=== PATIENT | male | born 1965 | race Caucasian/White ===

== ENCOUNTER → 2018-07-11 | Outpatient (CLI) | payer OTHER ==
[~2018-07-11] MED LIST: LEVAQUIN 5500 MG/TA1 PO; MULTI VITAMINS1 TAB PO; MVI; NO HOME MEDICATIONS; NORCO 325 MG-7.1 TAB; OXYCODONE5 M1 PO; PERCOCET 325 MG1 TA2 PO; PERCOCET 5/321 UDTAB PO; TYLENOL/CODEINE1 ML PO
== END ==
LOC: COL.RAD 15:32
DX: R36.1 Hematospermia (principal)

== ENCOUNTER 2021-05-18 13:44 | Inpatient (IN) | payer OTHER ==
[~2021-05-18] VITALS: Ht 172.7 cm; Wt 122.3 kg
[2021-05-18 15:20] LABS: BASO # 0.1 (0.0-0.2); BASO % 0.5 % (0.0-2.0); EOS # 0.2 (0.0-0.7); EOS % 1.3 % (0-4.0); LYMPH # 1.2 (1.2-3.4); LYMPH % 9.6 % (20.0-51.0); MEAN CELL VOLUME 100 fl (80.0-100.0); MEAN CORPUSCULAR HGB CONC 34 g/dl (33.0-37.0); MEAN PLATELET VOLUME 10.6 fl (7.4-10.4); MONO # 1.4 (0.1-0.6); MONO % 11.1 % (1.7-9.3); PLATELET COUNT 254 K/mm3 (130-400); RED BLOOD COUNT 5.94 M/mm3 (4.20-5.60); REDCELL DISTRIBUTION WIDTH-CV 14.1 % (11.5-14.5)
[2021-05-18 15:21] LABS: HEMATOCRIT 59.2 % (42.0-52.0); MEAN CORPUSCULAR HEMOGLOBIN 34 pg (27.0-31.0)
[2021-05-18 15:37] LABS: ALBUMIN 3.9 gm/dL (3.5-5.0); BILIRUBIN,TOTAL 2.1 mg/dL (0.0-1.0); C-REACTIVE PROTEIN 1.8 mg/dL (0.0-0.9); CREATININE, serum 1.18 (0.66-1.25); TOTAL PROTEIN 7.6 gm/dL (6.4-8.2)
[2021-05-18 15:40] LABS: POTASSIUM 4.8 mmol/L (3.4-5.0)
[2021-05-18 15:46] LABS: TROPONIN-I 0.035 ng/mL (0.000-0.035)
[2021-05-18 16:19] LABS: COLLECTION METHOD CLEAN CATCH
[2021-05-18 16:25] LABS: MUCOUS Present /lpf; PH 5 (5-8); SQUAMOUS EPITHELIAL None Seen /hpf; URINE APPEARANCE Cloudy; URINE BACTERIA Rare /hpf; URINE BILIRUBIN Negative (NEGATIVE); URINE BLOOD Negative (NEGATIVE); URINE COLOR Yellow; URINE GLUCOSE Negative (NEGATIVE); URINE KETONE Trace (NEGATIVE); URINE LEUKOCYTE ESTERASE Negative (NEGATIVE); URINE NITRATE Negative (NEGATIVE); URINE PROTEIN(semi-quant) 1+ (NEGATIVE); URINE RBC 0-2 /hpf; URINE UROBILINOGEN Negative (NEGATIVE)
[2021-05-18] MEDS ORDERED: ASPIRIN 81M81 MG/TA2 PO (17:58)
[2021-05-18] MEDS ORDERED: CITRACAL + D CA1 TAB (17:59)
[2021-05-18] MEDS ORDERED: VITAMINC1000TA (17:59)
[2021-05-18] MEDS ORDERED: KRILL OIL 5001 EACH PO (18:00)
[2021-05-18] MEDS ORDERED: TOPAMAX50 MG PO (18:00)
[2021-05-18] MEDS ORDERED: ADIPEX-P37.5 M2 PO (18:01)
[2021-05-18] MEDS ORDERED: ARMOUR THYROID120 MG PO (18:01)
[2021-05-18] MEDS ORDERED: PRINIVIL20 MG PO (18:01)
[2021-05-18 18:13] LABS: BASO # 0.1 (0.0-0.2); BASO % 0.4 % (0.0-2.0); EOS # 0.3 (0.0-0.7); EOS % 2.1 % (0-4.0); GRAN # 9.1 (1.4-6.5); GRAN % 75.4 % (42.2-75.2); LYMPH # 1.2 (1.2-3.4); LYMPH % 9.7 % (20.0-51.0); MEAN CELL VOLUME 99 fl (80.0-100.0); MEAN CORPUSCULAR HGB CONC 34 g/dl (33.0-37.0); MEAN PLATELET VOLUME 9.7 fl (7.4-10.4); MONO # 1.4 (0.1-0.6); MONO % 11.7 % (1.7-9.3); PLATELET COUNT 235 K/mm3 (130-400)
[2021-05-18 18:19] LABS: HEMATOCRIT 57.4 % (42.0-52.0); HEMOGLOBIN 19.3 g/dl (13.5-18.0); MEAN CORPUSCULAR HEMOGLOBIN 33 pg (27.0-31.0)
[2021-05-18 23:34] VITALS: BP 157/83; PULSE 83; TEMP 97.9
[2021-05-19 03:12] VITALS: BP 163/89; PULSE 91; TEMP 97.7
[2021-05-19 07:11] LABS: ALBUMIN 3.7 gm/dL (3.5-5.0); BILIRUBIN,TOTAL 1.5 mg/dL (0.0-1.0); CALCIUM 9.5 mg/dL (8.4-10.2); CREATININE, serum 1.04 (0.66-1.25); POTASSIUM 4.4 mmol/L (3.4-5.0); TOTAL PROTEIN 6.9 gm/dL (6.4-8.2)
[2021-05-19 07:14] LABS: BASO # 0.1 (0.0-0.2); BASO % 0.6 % (0.0-2.0); EOS # 0.3 (0.0-0.7); EOS % 2.1 % (0-4.0); GRAN # 9.6 (1.4-6.5); GRAN % 78.2 % (42.2-75.2); LYMPH # 0.9 (1.2-3.4); LYMPH % 7.4 % (20.0-51.0); MEAN CELL VOLUME 102 fl (80.0-100.0); MEAN CORPUSCULAR HGB CONC 33 g/dl (33.0-37.0); MEAN PLATELET VOLUME 10.5 fl (7.4-10.4); MONO # 1.3 (0.1-0.6); MONO % 10.9 % (1.7-9.3); PLATELET COUNT 246 K/mm3 (130-400); RED BLOOD COUNT 5.57 M/mm3 (4.20-5.60); REDCELL DISTRIBUTION WIDTH-CV 14.2 % (11.5-14.5)
[2021-05-19 07:15] LABS: HEMATOCRIT 56.6 % (42.0-52.0); HEMOGLOBIN 18.6 g/dl (13.5-18.0); MEAN CORPUSCULAR HEMOGLOBIN 33 pg (27.0-31.0)
[2021-05-19 07:23] LABS: TROPONIN-I 0.031 ng/mL (0.000-0.035)
[2021-05-19 07:42] LABS: TSH w REFLEX 1.23 uIU/mL (0.465-4.680)
[2021-05-19 08:06] VITALS: BP 160/77; PULSE 90; TEMP 97.9
--- NOTE | 2021-05-19 09:07 | NUR ---
SW met with the patient to discuss discharge plan. The patient lives in [place] with his , Beatriz (ph#[phone]). He reports independence with ADLs and does not have any DME. The patient's PCP is Dr. Chiara Vidal in [place] and he receives his medications from [facility]. He reports no difficulties obtaining his meds. The patient does not have a DPOA-HC and he was not interested in completing one while here. The patient plans to return home with his upon discharge. No additional needs at this time. *Discharge plan: home with *
--- NOTE | 2021-05-19 09:53 | NUR ---
Initial visit attempt; Patient resting, [facility] [employer] Attendant left card offering God's blessings and informing patient of the availability of spiritual care at [facility].
--- NOTE | 2021-05-19 11:10 | NUR ---
Assessment completed, alert/oriented, vital signs stable, reports moderate-severe RUQ pain , morphine is helping, abdomen is round and firm, BS+, he is NPO, IVF infusing, heart RRR/distal pulses are palpable, lungs CTA/ no resp.difficulty noted, patient denies other needs at this time, will continue to monitor
[2021-05-19] MEDS ORDERED: VICTOZA6 MG/ML SQ (11:54)
[2021-05-19] MEDS ORDERED: testosterone cream TP (11:56)
[2021-05-19 13:32] VITALS: BP 167/94; PULSE 90; TEMP 98.5
[2021-05-19 15:49] VITALS: BP 155/90; PULSE 94; TEMP 98.6
--- NOTE | 2021-05-19 20:00 | NUR ---
Patient in bed resting. Alert and oriented x 3. Assessment complete. States pain to abdomen 6/10, medications given per orders. Abdomen round and firm. Mouth swabs provided to patient, patient NPO; fluids infusing per orders. Denies further needs at this time.
[2021-05-19 20:02] VITALS: BP 174/92; PULSE 95; TEMP 97.5
[2021-05-19 23:09] VITALS: BP 173/97; PULSE 95; TEMP 98.8
[2021-05-20 03:12] VITALS: BP 159/91; PULSE 98; TEMP 98.9
--- NOTE | 2021-05-20 05:43 | NUR ---
Patient doing well throughout the night, sleeps between disturbances. Pain medication given for abdominal pain through the night. Fluids continue infusig per orders. Patient up independently in room with steady gait. Denies further needs at this time. Will report off to day shift.
[2021-05-20 07:05] LABS: HEMOGLOBIN 17.2 g/dl (13.5-18.0); MEAN CELL VOLUME 106 fl (80.0-100.0); MEAN CORPUSCULAR HEMOGLOBIN 34 pg (27.0-31.0); MEAN CORPUSCULAR HGB CONC 32 g/dl (33.0-37.0); MEAN PLATELET VOLUME 10.9 fl (7.4-10.4); PLATELET COUNT 203 K/mm3 (130-400); RED BLOOD COUNT 5.09 M/mm3 (4.20-5.60); REDCELL DISTRIBUTION WIDTH-CV 14.5 % (11.5-14.5)
[2021-05-20 07:17] LABS: HEMATOCRIT 53.7 % (42.0-52.0)
[2021-05-20 07:20] LABS: CALCIUM 8.8 mg/dL (8.4-10.2); CREATININE, serum 0.95 (0.66-1.25); POTASSIUM 3.9 mmol/L (3.4-5.0)
[2021-05-20 07:41] VITALS: BP 160/94; PULSE 89; TEMP 99
--- NOTE | 2021-05-20 08:41 | NUR ---
PT PLEASANT, REPORTS PAIN 6/10 IN RL ABD. PT AOX4, IND IN ROOM, FLUIDS INFUSING AT 150ML/HR, PT LUNGS CLEAR TO AUSCULTATION, MEDICATIONS GIVEN ALONG WITH PAIN MEDICATION, NO OTHER NEEDS AT THIS TIME.
--- NOTE | 2021-05-20 09:53 | NUR ---
DR. RODRIGUEZ DID NOT WANT MIRALAX GIVEN WHILE PT NPO, WANTING TO TRY STOOL SOFTENER FIRST
--- NOTE | 2021-05-20 12:19 | NUR ---
Chaplain house and offered support with patient.
[2021-05-20 12:40] VITALS: BP 161/85; PULSE 90; TEMP 98.4
[2021-05-20 16:05] VITALS: BP 161/107; PULSE 89; TEMP 98.7
--- NOTE | 2021-05-20 17:23 | NUR ---
ivf infusing, pt ambulating in halls independently, has not recieved pain meds since am, pleasant, tolerating cld very well. no n/v, no other needs
[2021-05-20 19:48] VITALS: BP 147/89; PULSE 66; TEMP 99.1
--- NOTE | 2021-05-20 20:30 | NUR ---
Patient sitting up in bed. Alert and oriented x 3. Assessment complete. Denies pain at this time. Up ambulating in halls independently with steady gait. States he is tolerating a clear liquid diet.
--- NOTE | 2021-05-20 22:11 | NUR ---
In bed watching TV. Denies needs at this time.
[2021-05-20 23:39] VITALS: BP 149/71; PULSE 83; TEMP 98.1
--- NOTE | 2021-05-21 00:27 | NUR ---
Patient in bed resting. Denies pain at this time.
[2021-05-21 04:11] VITALS: BP 191/87; PULSE 86; TEMP 99.2
--- NOTE | 2021-05-21 05:53 | NUR ---
Patient doing well through the night, states he has had difficulty sleeping tonight. Denies pain at this time. Denies further needs at this time. Will report off to day shift.
[2021-05-21 06:57] LABS: BASO # 0.1 (0.0-0.2); BASO % 0.5 % (0.0-2.0); EOS # 0.5 (0.0-0.7); EOS % 4.6 % (0-4.0); GRAN # 8.2 (1.4-6.5); GRAN % 72.4 % (42.2-75.2); LYMPH % 9.2 % (20.0-51.0); MEAN CELL VOLUME 104 fl (80.0-100.0); MEAN CORPUSCULAR HEMOGLOBIN 34 pg (27.0-31.0); MEAN CORPUSCULAR HGB CONC 32 g/dl (33.0-37.0); MEAN PLATELET VOLUME 10.5 fl (7.4-10.4); MONO # 1.4 (0.1-0.6); MONO % 12.3 % (1.7-9.3); PLATELET COUNT 195 K/mm3 (130-400); RED BLOOD COUNT 5.03 M/mm3 (4.20-5.60)
[2021-05-21 07:07] LABS: HEMATOCRIT 52.4 % (42.0-52.0)
[2021-05-21 07:15] LABS: CALCIUM 8.6 mg/dL (8.4-10.2); CREATININE, serum 0.77 (0.66-1.25); POTASSIUM 3.8 mmol/L (3.4-5.0)
[2021-05-21 08:28] VITALS: BP 175/92; PULSE 92; TEMP 98.9
--- NOTE | 2021-05-21 09:54 | NUR ---
PT PLEASANT, AOX4, DENIES PAIN AT THIS TIME, REPORTS POOR SLEEP DURING THE NIGHT, PHSYICIAN CALLED FOR ADVANCING DIET PER PT REQUEST, SHOWED PT HOW TO ORDER MEALS, ASSESMENT PERFORMED, MEDICATIONS GIVEN, PT DISCONNECTED FROM IV TO TAKE SHOWER, NO OTHER NEEDS.
[2021-05-21 10:11] VITALS: BP 154/95
--- NOTE | 2021-05-21 11:01 | NUR ---
DISCHARGE EDUCATION PROVIDED AND NO QUESTIONS WERE ASKED, PT VERBALIZED UNDERSTANDING, IV REMOVED, NO OTHER NEEDS, PT DENIED WHEELCHAIR TO WALK OUT OF BUILDING
== END 2021-05-21 11:02 | disposition home or self-care (01) | DRG 438 ==
LOC: COL.ER 13:44 → MEDICAL 19:18
PROVIDERS: Family Medicine; Physician Assistant; ADMIT Internal Medicine
DX: K85.20 Alcohol induced acute pancreatitis without necrosis or infection (principal); I50.31 Acute diastolic (congestive) heart failure; Z68.41 Body mass index [BMI] 40.0-44.9, adult; E03.9 Hypothyroidism, unspecified; D75.1 Secondary polycythemia; G47.33 Obstructive sleep apnea (adult) (pediatric); D72.829 Elevated white blood cell count, unspecified; F10.10 Alcohol abuse, uncomplicated; I11.0 Hypertensive heart disease with heart failure; E83.52 Hypercalcemia; E66.9 Obesity, unspecified; R94.5 Abnormal results of liver function studies; E86.0 Dehydration; N40.1 Benign prostatic hyperplasia with lower urinary tract symptoms; R14.0 Abdominal distension (gaseous); E66.01 Morbid (severe) obesity due to excess calories; R39.198 Other difficulties with micturition; R74.8 Abnormal levels of other serum enzymes; Z79.82 Long term (current) use of aspirin
CPT/HCPCS: 99222-AI; 99232-AI; 99239; A9284; C9113; J0360; J1650; J2270; J2405; J7030; J7120; Q9967